=== PATIENT | male | born 1935 | race African-American/Black ===

== ENCOUNTER 2016-11-26 20:13 | Emergency (ER) | payer MEDICARE ==
[~2016-11-26] VITALS: Ht 170.2 cm; Wt 80.0 kg
[2016-11-26] MEDS ORDERED: METF500T4 PO (20:38)
[2016-11-26] MEDS ORDERED: LISI-622 PO (20:38)
[2016-11-26] MEDS ORDERED: SIMV40TA5 PO (20:38)
[2016-11-26] MEDS ORDERED: ATEN25 PO (20:38)
[2016-11-26] MEDS ORDERED: GLIP10TA9 PO (20:38)
[2016-11-26 21:07] LABS: BASOPHILS % (AUTO) 0.4 % (0.0-2.0); EOSINOPHILS % (AUTO) 0.2 % (1.0-6.0); HEMATOCRIT 38.9 % (41-53); HEMOGLOBIN 12.3 g/dL (13.5-17.5); LYMPHOCYTES % (AUTO) 20.9 % (22.0-44.0); MEAN CORPUSCULAR HGB CONC 31.6 G/dL (31.0-37.0); MEAN CORPUSCULAR VOLUME 89 fL (80-100); MONOCYTES # (AUTO) 0.2 K/uL (0.1-1.0); NEUTROPHILS # (AUTO) 3.6 K/uL (1.8-7.7); NEUTROPHILS % (AUTO) 73.5 % (40.0-70.0); PLATELET COUNT (AUTO) 160 K/uL (150-450); RED CELL DISTRIBUTION WIDTH 15.7 % (11.5-14.5); WHITE BLOOD COUNT (AUTO) 4.9 K/uL (4.5-11.0)
[2016-11-26 21:17] LABS: ANION GAP 7 mmol/L (8-16); CALCIUM, TOTAL 9.2 mg/dL (8.8-10.5); CARBON DIOXIDE 28 mmol/L (22-29); CHLORIDE 106 mmol/L (98-107); GLOMERULAR FILTR. RATE CALC 59 mL/min (>60); POTASSIUM 4.2 mmol/L (3.5-5.1); SODIUM SERUM 141 mmol/L (136-145); UREA NITROGEN, BLOOD 15 mg/dL (7-18)
[2016-11-26 21:31] LABS: RBC MORPHOLOGY COMMENT NORMAL RBC MORPH
[2016-11-26 21:41] LABS: ALANINE AMINOTRANSFERASE 13 U/L (12-78); ALBUMIN 3.3 g/dL (3.4-5.0); ASPARTATE AMINOTRANSFERASE 14 U/L (15-37); BILIRUBIN,TOTAL 0.3 mg/dL (0.1-1.0); CREATINE KINASE MB 1.5 ng/mL (0-5); CREATINE KINASE, TOTAL 75 U/L (39-308); TOTAL PROTEIN, SERUM 7.2 g/dL (6.4-8.2)
[2016-11-26 21:47] LABS: APPEARANCE,URINE CLEAR (CLEAR); GLUCOSE, URINE (UA) 250 mg/dL (NEGATIVE); KETONES,URINE TRACE mg/dL (NEGATIVE); LEUKOCYTE ESTERASE ,URINE NEGATIVE (NEGATIVE); OCCULT BLOOD,URINE NEGATIVE (NEGATIVE); PH,URINE 6.5 (5.0-8.0); PROTEIN,URINE NEGATIVE (NEGATIVE)
[2016-11-26 22:01] LABS: ADD UA MICROSCOPIC YES
[2016-11-26 22:11] LABS: RBC,URINE None Seen /HPF (0-2); WBC,URINE None Seen /HPF (0-5)
[2016-11-26 22:52] VITALS: BP 133/70
[2016-11-26 23:11] LABS: GLUCOSE,POINT OF CARE 133 MG/DL (70-110)
[2016-11-26 23:11] LABS: GLUCOSE,POINT OF CARE 121 MG/DL (70-110)
== END 2016-11-26 23:46 | disposition home or self-care (01) ==
LOC: EMS 20:15
DX: E11.649 Type 2 diabetes mellitus with hypoglycemia without coma (principal); I10 Essential (primary) hypertension; E78.00 Pure hypercholesterolemia, unspecified
CPT/HCPCS: 74000; 82962; 93005; 99285

== ENCOUNTER 2023-04-29 18:22 | Inpatient (IN) | payer MEDICARE ==
[~2023-04-29] VITALS: Ht 170.2 cm; Wt 74.8 kg
[~2023-04-29 18:22] MED LIST: ATEN-73 PO; GLIP10TA9 PO; LISI5TAB21 PO; METF-1211 PO; SIMV-46 PO
[2023-04-29 19:21] LABS: BASOPHILS % (AUTO) 0.5 % (0.0-2.0); CALCIUM, TOTAL 9.1 mg/dL (8.8-10.5); CREATININE 1.84 mg/dL (0.60-1.30); EOSINOPHILS % (AUTO) 3.4 % (1.0-6.0); HEMATOCRIT 40.9 % (41-53); HEMOGLOBIN 12.9 g/dL (13.5-17.5); LYMPHOCYTES % (AUTO) 24.9 % (22.0-44.0); MEAN CORPUSCULAR HEMOGLOBIN 29.3 pg (26.0-34.0); MEAN CORPUSCULAR HGB CONC 31.6 G/dL (31.0-37.0); MEAN CORPUSCULAR VOLUME 93 fL (80-100); MONOCYTES # (AUTO) 0.4 K/uL (0.1-1.0); MONOCYTES % (AUTO) 9.7 % (2.0-9.0); NEUTROPHILS # (AUTO) 2.4 K/uL (1.8-7.7); NEUTROPHILS % (AUTO) 61.5 % (40.0-70.0); PLATELET COUNT (AUTO) 102 K/uL (150-450); POTASSIUM 4.2 mmol/L (3.5-5.1); RED BLOOD CELL COUNT(AUTO) 4.41 MIL/uL (4.50-5.90); RED CELL DISTRIBUTION WIDTH 17.3 % (11.5-14.5)
[2023-04-29 19:27] LABS: ALBUMIN 3.1 g/dL (3.4-5.0); BILIRUBIN,TOTAL 0.9 mg/dL (0.1-1.0); TOTAL PROTEIN, SERUM 6.8 g/dL (6.4-8.2)
[2023-04-29 20:55] LABS: GLUCOMETER DEV NAME(LOC) ER.6
[2023-04-29] MEDS ORDERED: CefTRIAXone 1 GM/DEXTROSE 50 ML IV ONE (21:15)
[2023-04-29] MEDS ORDERED: AZITHROMYCIN 500 MG/NS 250 ML IV ONE (21:15)
[2023-04-29 21:23] LABS: COVID AG,FIA SOURCE NASOPHARYNGEAL
[2023-04-29 21:42] LABS: INFLUENZA TYPE A NEGATIVE FOR TYPE A (NEGATIVE); INFLUENZA TYPE B NEGATIVE FOR TYPE B (NEGATIVE)
[2023-04-29 22:07] LABS: GLUCOMETER DEV NAME(LOC) ER.6
[2023-04-29] MEDS ORDERED: ACETAMINOPHEN 325 MG TABLET PO PRN (23:00)
[2023-04-29] MEDS ORDERED: DEXTROSE 50%-WATER 25 GM/50 ML SYRINGE IVP PRN (23:00)
[2023-04-29] MEDS ORDERED: ONDANSETRON HCL 4 MG/2 ML VIAL IVP PRN (23:00)
[2023-04-30] VITALS (7 sets, daily range): BP systolic 96–125; BP diastolic 53–70; PULSE 62–73; RESP 18–24; TEMP 97.7–98.2
[2023-04-30 00:03] LABS: LACTIC ACID 1.4 mmol/L (0.4-2.0)
[2023-04-30] MEDS: HEPARIN SODIUM,PORCINE 5,000 UNITS/ML VIAL SQ SCH ×4 (00:08→22:54)
[2023-04-30] MEDS ORDERED: SODIUM CHLORIDE 0.9% 500 ML IV ONE ×2 (00:57→23:28)
[2023-04-30 06:56] LABS: GLUCOMETER DEV NAME(LOC) 6N.2B
[2023-04-30 07:04] LABS: BASOPHILS % (AUTO) 0.4 % (0.0-2.0); EOSINOPHILS % (AUTO) 3.4 % (1.0-6.0); HEMATOCRIT 37.8 % (41-53); HEMOGLOBIN 12.2 g/dL (13.5-17.5); LYMPHOCYTES # (AUTO) 1.4 K/uL (1.0-4.8); LYMPHOCYTES % (AUTO) 36.3 % (22.0-44.0); MEAN CORPUSCULAR HEMOGLOBIN 29.8 pg (26.0-34.0); MEAN CORPUSCULAR HGB CONC 32.1 G/dL (31.0-37.0); MEAN CORPUSCULAR VOLUME 93 fL (80-100); MONOCYTES # (AUTO) 0.5 K/uL (0.1-1.0); MONOCYTES % (AUTO) 11.9 % (2.0-9.0); NEUTROPHILS # (AUTO) 1.9 K/uL (1.8-7.7); RED BLOOD CELL COUNT(AUTO) 4.08 MIL/uL (4.50-5.90); RED CELL DISTRIBUTION WIDTH 16.8 % (11.5-14.5)
[2023-04-30 07:26] LABS: CALCIUM, TOTAL 8.6 mg/dL (8.8-10.5); CREATININE 1.67 mg/dL (0.60-1.30); MAGNESIUM 1.9 mg/dL (1.80-2.40); POTASSIUM 4.6 mmol/L (3.5-5.1)
[2023-04-30 08:28] LABS: PLATELET COUNT (AUTO) 92 K/uL (150-450)
[2023-04-30] MEDS: DOCUSATE SODIUM 100 MG CAPSULE PO SCH ×2 (08:38→20:52)
[2023-04-30] MEDS ORDERED: FUROSEMIDE 20 MG/2 ML VIAL IVP SCH (09:00)
[2023-04-30] MEDS: AZITHROMYCIN 250 MG TABLET PO SCH (11:13)
[2023-04-30] MEDS: INSULIN LISPRO 100 UNITS/ML SQ PRN (11:30)
[2023-04-30 12:10] LABS: CREATININE,URINE RANDOM 99.8 mg/dL (30.0-125.0)
[2023-04-30 13:31] LABS: GLUCOMETER DEV NAME(LOC) 6N.2B
[2023-04-30 21:56] LABS: GLUCOMETER DEV NAME(LOC) 5N.1C
[2023-04-30 21:56] LABS: GLUCOMETER DEV NAME(LOC) 5N.1C
[2023-04-30] MEDS: CefTRIAXone 1 GM/DEXTROSE 50 ML IV SCH ×2 (23:29)
[2023-05-01 00:23] VITALS: BP 120/70; PULSE 66; RESP 11; RESP 22; TEMP 97.9
[2023-05-01 04:15] VITALS: BP 116/68; PULSE 65; RESP 22; TEMP 97.8
[2023-05-01 06:58] LABS: BASOPHILS % (AUTO) 0.6 % (0.0-2.0); EOSINOPHILS % (AUTO) 4.9 % (1.0-6.0); HEMATOCRIT 39.2 % (41-53); HEMOGLOBIN 12.9 g/dL (13.5-17.5); LYMPHOCYTES # (AUTO) 1.7 K/uL (1.0-4.8); LYMPHOCYTES % (AUTO) 41.7 % (22.0-44.0); MEAN CORPUSCULAR HEMOGLOBIN 30.5 pg (26.0-34.0); MEAN CORPUSCULAR HGB CONC 32.9 G/dL (31.0-37.0); MEAN CORPUSCULAR VOLUME 93 fL (80-100); MONOCYTES # (AUTO) 0.5 K/uL (0.1-1.0); MONOCYTES % (AUTO) 12.3 % (2.0-9.0); NEUTROPHILS # (AUTO) 1.7 K/uL (1.8-7.7); NEUTROPHILS % (AUTO) 40.5 % (40.0-70.0); PLATELET COUNT (AUTO) 91 K/uL (150-450); RED BLOOD CELL COUNT(AUTO) 4.22 MIL/uL (4.50-5.90); RED CELL DISTRIBUTION WIDTH 16.9 % (11.5-14.5)
[2023-05-01 07:06] LABS: GLUCOMETER DEV NAME(LOC) 5N.1C
[2023-05-01 07:06] LABS: CALCIUM, TOTAL 8.7 mg/dL (8.8-10.5); CREATININE 1.69 mg/dL (0.60-1.30); MAGNESIUM 1.9 mg/dL (1.80-2.40); POTASSIUM 5.1 mmol/L (3.5-5.1)
[2023-05-01 08:00] VITALS: BP 110/64; PULSE 68; RESP 14; TEMP 97.5
[2023-05-01] MEDS: HEPARIN SODIUM,PORCINE 5,000 UNITS/ML VIAL SQ SCH (08:00)
[2023-05-01] MEDS: DOCUSATE SODIUM 100 MG CAPSULE PO SCH (09:26)
[2023-05-01] MEDS: AZITHROMYCIN 250 MG TABLET PO SCH (09:26)
[2023-05-01 11:26] LABS: GLUCOMETER DEV NAME(LOC) 5N.1C
[2023-05-01 11:43] VITALS: BP 113/58; PULSE 63; RESP 18; TEMP 97.6
[2023-05-01] MEDS: INSULIN LISPRO 100 UNITS/ML SQ PRN (12:47)
== END 2023-05-01 16:50 | disposition home or self-care (01) | DRG 637 ==
LOC: EMS 18:23 → 6S 23:30 → 5S 04-30 15:35
PROVIDERS: ADMIT Internal Medicine; ATTEND Internal Medicine
DX: E11.649 Type 2 diabetes mellitus with hypoglycemia without coma (principal); G93.41 Metabolic encephalopathy; J18.9 Pneumonia, unspecified organism; D61.818 Other pancytopenia; I12.9 Hypertensive chronic kidney disease with stage 1 through stage 4 chronic kidney disease, or unspecified chronic kidney disease; N18.30 Chronic kidney disease, stage 3 unspecified; N17.9 Acute kidney failure, unspecified; Z20.822 Contact with and (suspected) exposure to COVID-19; I95.9 Hypotension, unspecified; R55 Syncope and collapse; R79.89 Other specified abnormal findings of blood chemistry; E78.00 Pure hypercholesterolemia, unspecified; I25.2 Old myocardial infarction; Z59.7 Insufficient social insurance and welfare support; Z79.84 Long term (current) use of oral hypoglycemic drugs; Z79.899 Other long term (current) drug therapy
CPT/HCPCS: 70450; 71045; 72125; 80048; 80053; 82550; 82570; 82962; 83605; 83735; 83880; 84145; 84300; 84484; 85025; 87040; 87804; 93005; 93306; 97162; 99285; J0456; J0696; J1644; J1940; J7040; 36415-L1; 36415-TC